=== PATIENT | male | born 1970 | race Caucasian/White ===

== ENCOUNTER 2017-10-18 18:31 | Emergency (ER) | payer OTHER ==
[~2017-10-18] VITALS: Ht 180.3 cm; Wt 86.2 kg
[2017-10-18] MEDS ORDERED: ZOCOR20 MG PO (18:41)
[2017-10-18] MEDS ORDERED: KEFLEX500 M1 PO (19:00)
[2017-10-18 19:26] VITALS: BP 130/91
== END 2017-10-18 19:27 | disposition home or self-care (01) ==
LOC: M.ERS 18:31
DX: S81.812A Laceration without foreign body, left lower leg, initial encounter (principal); W26.0XXA Contact with knife, initial encounter; Y93.89 Activity, other specified; Y92.89 Other specified places as the place of occurrence of the external cause; Y99.8 Other external cause status